=== PATIENT | female | born 1990 | race Caucasian/White ===

== ENCOUNTER 2019-08-07 23:54 | Emergency (ER) | payer SELFPAY ==
[~2019-08-07] VITALS: Ht 154.9 cm; Wt 65.8 kg
[2019-08-07 23:59] VITALS: BP 113/72
[2019-08-08] MEDS ORDERED: ACETAMIN/CODEINE 120/12MG-5ML 5 ML UDC PO ONE (00:40)
[2019-08-08] MEDS ORDERED: KETOROLAC 30 MG/ML VIAL IM ONE (00:40)
[2019-08-08 01:12] VITALS: BP 113/72
== END 2019-08-08 01:15 | disposition home or self-care (01) ==
LOC: MED 23:54
DX: J10.1 Influenza due to other identified influenza virus with other respiratory manifestations (principal); F12.10 Cannabis abuse, uncomplicated; R19.7 Diarrhea, unspecified; M54.5 Low back pain
CPT/HCPCS: 71045; 87804; 96372; 99284; J1885; Q0092